=== PATIENT | male | born 1960 | race Caucasian/White ===

== ENCOUNTER 2018-06-17 11:09 | Day surgery (SDC) | payer BC ==
[2018-06-13 14:16] VITALS: BMI 23.6
[~2018-06-17 11:09] MED LIST: LACTATED RINGERS 1,000 ML IV SCH
[2018-06-17 11:21] VITALS: TEMP 98
[2018-06-17] MEDS ORDERED: LACTATED RINGERS 1,000 ML IV ONE (11:21)
[2018-06-17] MEDS ORDERED: LIDOCAINE 1% 20 ML VIAL (10MG/ML) FOR IV START INTRADERMA ONE (11:21)
[2018-06-17] MEDS ORDERED: PROPOFOL 10 MG/ML 20 ML VIAL IV ONE (11:48)
--- NOTE | 2018-06-17 12:17 | P.PCN ---
Date of Procedure: 06/17/18 Procedure(s) Performed: Procedure: Esophagogastroduodenoscopy and biopsy. Preoperative diagnosis: History of hematemesis. Postoperative diagnosis: 1. Small sliding hiatal hernia with no obvious esophagitis or complicated reflux disease. 2. Mild antral gastritis. 3. Multiple biopsies obtained from the duodenum, antrum and esophagus. Preparation and sedation: Was provided by anesthesia. Brief clinical history: The patient is a 57-year-old male who is scheduled for this evaluation because of 3 episodes of vomiting including vomiting of blood that occurred between 6 weeks and 2 months ago. He has not had any such episodes since. He denied abdominal pain or acid reflux. Has been having infrascapular and mid back pain and an ultrasound of the gallbladder was recently performed. The results are not available at the time of this dictation. This evaluation is to assess for peptic ulcer disease, complicated reflux or other pathology. Procedure: With the patient on his left lateral decubitus position and after informed consent and adequate sedation, I passed the Olympus-GIF H1 90 video upper endoscope through the cricopharyngeus down the esophagus. GE junction was around 38 cm from the incisors and there was a sliding hiatal hernia measuring between 1 and 2 cm but no obvious esophagitis or complicated reflux disease. The endoscope was then passed into the stomach which was insufflated with air and inspected in detail including the retroflex view in the cardia. There was some mottling and erythema in the antrum but no ulcers or erosions. Pyloric channel, duodenal bulb, post bulbar area and descending duodenum appeared within normal limits. Because of his symptoms. I obtained biopsies from the duodenum, antrum and esophagus then the endoscope was withdrawn. The patient tolerated the procedure well. Plan: The patient was reassured. Will await biopsy results. He will follow up with you as planned and further plans will be based on his course and biopsy and ultrasound results. I will be happy to see in the future if his symptoms persist.
[2018-06-17 12:18] VITALS: PULSE 79; RESP 16
[2018-06-17 12:36] VITALS: BP 117/72
== END 2018-06-17 13:20 | disposition home or self-care (01) ==
LOC: ORWHC2ENDO 11:09
DX: K29.50 Unspecified chronic gastritis without bleeding (principal); K92.0 Hematemesis; K44.9 Diaphragmatic hernia without obstruction or gangrene; I10 Essential (primary) hypertension; M19.90 Unspecified osteoarthritis, unspecified site; Z79.890 Hormone replacement therapy; Z79.899 Other long term (current) drug therapy
CPT/HCPCS: 43239; J2704; 88305

== ENCOUNTER → 2018-06-27 | Outpatient (CLI) | payer BC ==
--- NOTE | 2018-06-28 07:56 | NM ---
EXAMINATION TYPE: NM hepatobiliary w EF DATE OF EXAM: 06/27/2018 COMPARISON: NONE HISTORY: Right upper quadrant pain TECHNIQUE: After the intravenous administration of 4.67 mCi Tc 99m Mebrofenin hepatobiliary scintigra phy is performed. Immediate images post injection. FINDINGS: There is satisfactory initial accumulation of tracer by the liver. The gallbladder is visualized wit hin 8 minutes. The small bowel activity is noted within 34 minutes. At one hour 8 ounces of oral en sure plus is given to mimic CCK and gallbladder ejection fraction is calculated at 96%. IMPRESSION: Elevated gallbladder ejection fraction indicating hypercontractile state.
== END | disposition home or self-care (01) ==
LOC: RADNMMAIN 14:38
PROVIDERS: ATTEND Family Medicine
DX: R93.2 Abnormal findings on diagnostic imaging of liver and biliary tract (principal)
CPT/HCPCS: 78226; A9537

== ENCOUNTER 2020-01-11 20:14 | Observation (INO) | payer BC ==
[2020-01-11] MEDS ORDERED: SODIUM CHLORIDE 0.9% 1,000 ML IV STA (20:41)
--- NOTE | 2020-01-11 20:54 | ED ---
General Adult HPI - General Source: patient Mode of arrival: ambulatory Limitations: no limitations <Tricia Lowry - Last Filed: 01/11/20 23:29> <Dina Edwards - Last Filed: 01/18/20 23:35> - General Chief complaint: Dizziness Stated complaint: Dizziness,Nausea Time Seen by Provider: 01/11/20 20:31 - History of Present Illness Initial comments: 59-year-old male patient presents to the emergency department today for evaluation of elevated blood pressure, weakness, dizziness. Patient states last night he had 3 syncopal episodes. States he did have a couple of alcoholic beverages was sitting on the fire. States he started to not feel well, passed out. Patient did strike the side of his head with the fall. was present and states that he was unconscious for around 1 minute. States that he got up and went into the house and had 2 more syncopal events in a similar fashion. Today patient reports intermittent headache. Denies blurred or double vision. States he does feel lightheaded when he gets up or moves his head too fast. States that he is also just feeling generally weak and tired today. He denies any nausea or vomiting. Denies numbness, tingling, or weakness to the extremities. Patient states that he has had approximately 6 episodes of syncope in the past. States that he has had evaluation by cardiology and his primary care physician and were unable to find a cause for the episodes. Patient denies any current chest pain or shortness of breath. Denies any abdominal pain, difficulty with urination or diarrhea. He is reporting cramping to his calves today. Patient denies any recent rash, fever, chills, cough, constipation, back pain, numbness, tingling, dizziness, weakness, hematuria, dysuria, urinary urgency, urinary frequency, or any other complaints. (Tricia Lowry) - Related Data Home Medications Medication Instructions Recorded Confirmed Levothyroxine Sodium [Synthroid] 25 mcg PO DAILY 04/22/14 01/12/20 Losartan Potassium 100 mg PO HS 04/23/14 01/12/20 Multivitamin [Men's Multi-Vitamin] 1 each PO DAILY 06/13/18 01/12/20 Allergies Allergy/AdvReac Type Severity Reaction Status Date / Time No Known Allergies Allergy Verified 01/12/20 08:24 Review of Systems ROS Other: All systems not noted in ROS Statement are negative. <Tricia Lowry - Last Filed: 01/11/20 23:29> ROS Other: All systems not noted in ROS Statement are negative. <Dina Edwards Miranda - Last Filed: 01/18/20 23:35> ROS Statement: Those systems with pertinent positive or pertinent negative responses have been documented in the HPI. Past Medical History Past Medical History: Hyperlipidemia, Hypertension, Osteoarthritis (OA), Thyroid Disorder Additional Past Medical History / Comment(s): LEFT KNEE INJURY History of Any Multi-Drug Resistant Organisms: None Reported Past Surgical History: Orthopedic Surgery Additional Past Surgical History / Comment(s): RT FOOT SURGERY; R KNEE SURGERY Past Anesthesia/Blood Transfusion Reactions: Motion Sickness Past Psychological History: No Psychological Hx Reported Smoking Status: Never smoker Past Alcohol Use History: Occasional Past Drug Use History: Marijuana - Past Family History Mother Family Medical History: Deep Vein Thrombosis (DVT), Pulmonary Embolus Sister(s) Family Medical History: Cancer Brother(s) Family Medical History: Cancer Additional Family Medical History / Comment(s): 3 BROTHERS HAD CANCER <Tricia Lowry - Last Filed: 01/11/20 23:29> General Exam Limitations: no limitations General appearance: alert, in no apparent distress, other (This is a well- developed, well-nourished adult male patient in no acute distress. Vital signs upon presentation are temperature 98.3F, pulse 70, respirations 18, blood pressure 154/95, pulse ox 97% on room air.) Head exam: Present: atraumatic, normocephalic, normal inspection Eye exam: Present: normal appearance, PERRL, EOMI. Absent: scleral icterus, conjunctival injection, nystagmus, periorbital swelling ENT exam: Present: normal exam, normal oropharynx, mucous membranes moist Respiratory exam: Present: normal lung sounds bilaterally. Absent: respiratory distress, wheezes, rales, rhonchi, stridor Cardiovascular Exam: Present: regular rate, normal rhythm, normal heart sounds. Absent: systolic murmur, diastolic murmur, rubs, gallop, clicks GI/Abdominal exam: Present: soft, normal bowel sounds. Absent: distended, tenderness, guarding, rebound, rigid Neurological exam: Present: alert, oriented X3, CN II-XII intact Expanded Speech: Present: fluid speech Cranial nerves: EOM's Intact: Normal, Tongue Deviation: Normal, Nystagmus: Normal Motor strength exam: RUE: 5, LUE: 5, RLE: 5, LLE: 5 Eye Response: (4) open spontaneously Motor Response: (6) obeys commands Verbal Response: (5) oriented [place] Total: 15 Psychiatric exam: Present: normal affect, normal mood Skin exam: Present: warm, dry, intact, normal color. Absent: rash <Tricia Lowry - Last Filed: 01/11/20 23:29> Course Vital Signs 01/11/20 01/11/20 20:25 22:44 Temperature 98.3 F Pulse Rate 70 67 Respiratory 18 18 Rate Blood Pressure 154/95 140/78 O2 Sat by Pulse 97 96 Oximetry EKG Findings - EKG Comments: EKG Findings:: EKG obtained at 2103 shows sinus bradycardia with an incomplete right bundle branch block. Ventricular rate is 58, NH interval 142, QR sabianism 92, QT 408, QTC 400. <Tricia Lowry - Last Filed: 01/11/20 23:29> Medical Decision Making - Lab Data Result diagrams: 01/11/20 20:46 01/11/20 20:46 - Radiology Data Radiology results: report reviewed, image reviewed <Tricia Lowry - Last Filed: 01/11/20 23:29> - Lab Data Result diagrams: 01/11/20 20:46 01/11/20 20:46 <Dina Edwards - Last Filed: 01/18/20 23:35> - Medical Decision Making 59-year-old male patient presents to the emergency department today for evaluation after having 3 episodes of syncope yesterday and continued to have elevated blood pressures and feeling weak today. Physical examination is unremarkable. 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 EKG shows sinus bradycardia with an incomplete right bundle branch block. Patient has no previous ekgs for comparison, states his heart rate usually is not this low. Labs reviewed and are unremarkable. CT of the brain was performed and is negative. Chest x-ray is unremarkable. Given patient's symptoms and new bradycardia we'll admit to the hospital for further evaluation by cardiology. Patient is agreeable this plan. (Tricia Lowry) I was available for consultation in the emergency department. The history and physical exam were done by the midlevel provider. I was consulted for this patients care. I reviewed the case with the midlevel provider and based on their presentation of the patient, I agree with the assessment, medical decision making and plan of care as documented. Chart was dictated using [employer] dictation software. Attempts were made to correct any dictation errors however some typographical errors may persist. Patient was seen during a national state of emergency due to the Covid-19 pandemic. (Dina Edwards) - Lab Data Lab Results 01/11/20 01/11/20 01/11/20 Range/Units 20:46 20:46 20:46 WBC 6.7 (3.8-10.6) k/uL RBC 5.09 (4.30-5.90) m/uL Hgb 16.1 (13.0-17.5) gm/dL Hct 46.9 (39.0-53.0) % MCV 92.2 (80.0-100.0) fL MCH 31.6 (25.0-35.0) pg MCHC 34.2 (31.0-37.0) g/dL RDW 12.9 (11.5-15.5) % Plt Count 198 (150-450) k/uL Neutrophils % 56 % Lymphocytes % 33 % Monocytes % 5 % Eosinophils % 3 % Basophils % 1 % Neutrophils # 3.8 (1.3-7.7) k/uL Lymphocytes # 2.2 (1.0-4.8) k/uL Monocytes # 0.3 (0-1.0) k/uL Eosinophils # 0.2 (0-0.7) k/uL Basophils # 0.1 (0-0.2) k/uL PT 10.3 (9.0-12.0) sec INR 1.0 (<1.2) APTT 24.9 (22.0-30.0) sec Sodium 139 (137-145) mmol/L Potassium 3.9 (3.5-5.1) mmol/L Chloride 105 (98-107) mmol/L Carbon Dioxide 26 (22-30) mmol/L Anion Gap 8 mmol/L BUN 31 H (9-20) mg/dL Creatinine 1.21 (0.66-1.25) mg/dL Est GFR (CKD-EPI)AfAm 75 (>60 ml/min/1.73 sqM) Est GFR (CKD-EPI)NonAf 65 (>60 ml/min/1.73 sqM) Glucose 142 H (74-99) mg/dL Calcium 9.5 (8.4-10.2) mg/dL Magnesium 2.1 (1.6-2.3) mg/dL Total Bilirubin 0.4 (0.2-1.3) mg/dL AST 26 (17-59) U/L ALT 21 (4-49) U/L Alkaline Phosphatase 82 (38-126) U/L Troponin I (0.000-0.034) ng/mL Total Protein 7.1 (6.3-8.2) g/dL Albumin 4.5 (3.5-5.0) g/dL Urine Color Urine Appearance (Clear) Urine pH (5.0-8.0) Ur Specific Mena (1.001-1.035) Urine Protein (Negative) Urine Glucose (UA) (Negative) Urine Ketones (Negative) Urine Blood (Negative) Urine Nitrite (Negative) Urine Bilirubin (Negative) Urine Urobilinogen (<2.0) mg/dL Ur Leukocyte Esterase (Negative) Coronavirus (PCR) (Not Detected) 01/11/20 01/11/20 01/11/20 Range/Units 20:46 22:06 23:19 WBC (3.8-10.6) k/uL RBC (4.30-5.90) m/uL Hgb (13.0-17.5) gm/dL Hct (39.0-53.0) % MCV (80.0-100.0) fL MCH (25.0-35.0) pg MCHC (31.0-37.0) g/dL RDW (11.5-15.5) % Plt Count (150-450) k/uL Neutrophils % % Lymphocytes % % Monocytes % % Eosinophils % % Basophils % % Neutrophils # (1.3-7.7) k/uL Lymphocytes # (1.0-4.8) k/uL Monocytes # (0-1.0) k/uL Eosinophils # (0-0.7) k/uL Basophils # (0-0.2) k/uL PT (9.0-12.0) sec INR (<1.2) APTT (22.0-30.0) sec Sodium (137-145) mmol/L Potassium (3.5-5.1) mmol/L Chloride (98-107) mmol/L Carbon Dioxide (22-30) mmol/L Anion Gap mmol/L BUN (9-20) mg/dL Creatinine (0.66-1.25) mg/dL Est GFR (CKD-EPI)AfAm (>60 ml/min/1.73 sqM) Est GFR (CKD-EPI)NonAf (>60 ml/min/1.73 sqM) Glucose (74-99) mg/dL Calcium (8.4-10.2) mg/dL Magnesium (1.6-2.3) mg/dL Total Bilirubin (0.2-1.3) mg/dL AST (17-59) U/L ALT (4-49) U/L Alkaline Phosphatase (38-126) U/L Troponin I <0.012 (0.000-0.034) ng/mL Total Protein (6.3-8.2) g/dL Albumin (3.5-5.0) g/dL Urine Color Yellow Urine Appearance Clear (Clear) Urine pH 5.5 (5.0-8.0) Ur Specific [place] 1.030 (1.001-1.035) Urine Protein Negative (Negative) Urine Glucose (UA) Negative (Negative) Urine Ketones Negative (Negative) Urine Blood Negative (Negative) Urine Nitrite Negative (Negative) Urine Bilirubin Negative (Negative) Urine Urobilinogen <2.0 (<2.0) mg/dL Ur Leukocyte Esterase Negative (Negative) Coronavirus (PCR) Not Detected (Not Detected) - Radiology Data CT brain without contrast was obtained. Report is reviewed in its entirety. Impression by Dr. Roldan shows negative unenhanced head CT scan. Two-view x-ray of the chest is obtained. Report was reviewed in its entirety. Impression by Dr. Roldan shows normal chest. (Tricia Lowry) Disposition Decision to Admit Reason: Admit from EC Decision Date: 01/11/20 Decision Time: 23:01 <Tricia Lowry - Last Filed: 01/11/20 23:29> <Dina Edwards - Last Filed: 01/18/20 23:35> Clinical Impression: Syncope, Bradycardia, Weakness Disposition: ADMITTED IP TO THIS HOSP Condition: Serious
[2020-01-11 20:55] LABS: Basophils # (A) 0.1 k/uL (0-0.2); Basophils % (A) 1 %; Eosinophils # (A) 0.2 k/uL (0-0.7); Eosinophils % (A) 3 %; HCT 46.9 % (39.0-53.0); HGB 16.1 gm/dL (13.0-17.5); Lymphocytes # (A) 2.2 k/uL (1.0-4.8); Lymphocytes % (A) 33 %; MCH 31.6 pg (25.0-35.0); MCHC 34.2 g/dL (31.0-37.0); MCV 92.2 fL (80.0-100.0); Mean Platelet Volume 7.3; Monocytes # (A) 0.3 k/uL (0-1.0); Monocytes % (A) 5 %; Neutrophils # (A) 3.8 k/uL (1.3-7.7); Neutrophils % (A) 56 %; Platelet Count 198 k/uL (150-450); RBC 5.09 m/uL (4.30-5.90); RDW 12.9 % (11.5-15.5); WBC 6.7 k/uL (3.8-10.6)
--- NOTE | 2020-01-11 21:02 | CT ---
EXAMINATION TYPE: CT brain wo con DATE OF EXAM: 01/11/2020 COMPARISON: None HISTORY: Syncope and head injury. CT DLP: 1098.4 mGycm Automated exposure control for dose reduction was used. Ventricles have normal size. There is no mass effect or midline shift. There is no sign of intracrani al hemorrhage. The calvarium is intact. There is no evidence of cerebral edema. IMPRESSION: Negative unenhanced head CT scan.
--- NOTE | 2020-01-11 21:03 | XR ---
EXAMINATION TYPE: XR chest 2V DATE OF EXAM: 01/11/2020 COMPARISON: NONE HISTORY: Syncope. Nausea. TECHNIQUE: FINDINGS: Heart and mediastinum are normal. Lungs are clear. Diaphragm is normal. Bony thorax appears normal. IMPRESSION: Normal chest.
[2020-01-11 21:04] LABS: Albumin 4.5 g/dL (3.5-5.0); Calcium 9.5 mg/dL (8.4-10.2); Magnesium 2.1 mg/dL (1.6-2.3); Potassium 3.9 mmol/L (3.5-5.1); Total Bilirubin 0.4 mg/dL (0.2-1.3); Total Protein 7.1 g/dL (6.3-8.2)
[2020-01-11 21:09] LABS: Partial Thromboplastin Time 24.9 sec (22.0-30.0); Prothrombin Time 10.3 sec (9.0-12.0)
[2020-01-11 22:16] LABS: Appearance,Urine Clear (Clear); Bilirubin,Urine Negative (Negative); Blood,Urine Negative (Negative); Color,Urine Yellow; Glucose,Urine (UA) Negative (Negative); Ketones,Urine Negative (Negative); Leukocyte Esterase,Urine Negative (Negative); Nitrite,Urine Negative (Negative); PH, Urine 5.5 (5.0-8.0); Protein,Urine Negative (Negative); Urobilinogen,Urine <2.0 mg/dL (<2.0)
[2020-01-11] MEDS ORDERED: ONDANSETRON 4 MG/2 ML VIAL IVP PRN (22:56)
[2020-01-11] MEDS ORDERED: NALOXONE 0.4 MG/ML 1 ML VIAL IV PRN (22:56)
[2020-01-11] MEDS ORDERED: SODIUM CHLORIDE 0.9% 1,000 ML IV SCH (23:00)
[2020-01-12 08:16] VITALS: RESP 12
[2020-01-12] MEDS ORDERED: LOSARTAN 50 MG TAB PO SCH (09:00)
[2020-01-12] MEDS ORDERED: MULTIVITAMINS, THERA 1 EACH TAB PO SCH (09:00)
[2020-01-12] MEDS ORDERED: LEVOTHYROXINE 25 MCG TAB PO SCH (09:00)
--- NOTE | 2020-01-12 11:02 | ECHOF ---
Referral Reason:syncope MEASUREMENTS -------- HEIGHT: 175.3 cm WEIGHT: 76.2 kg BP: 142/83 RVIDd: 3.4 cm (< 3.3) IVSd: 1.3 cm (0.6 - 1.1) LVIDd: 4.4 cm (3.9 - 5.3) LVPWd: 1.1 cm (0.6 - 1.1) IVSs: 1.6 cm LVIDs: 3.5 cm LVPWs: 1.4 cm LA Diam: 3.9 cm (2.7 - 3.8) LAESV Index (A-L): 25.70 ml/m Ao Diam: 3.2 cm (2.0 - 3.7) AV Cusp: 1.9 cm (1.5 - 2.6) MV EXCURSION: 16.920 mm (> 18.000) MV EF SLOPE: 86 mm/s (70 - 150) EPSS: 0.7 cm MV E Rudolph: 0.63 m/s MV DecT: 193 ms MV A Rudolph: 0.61 m/s MV E/A Ratio: 1.04 AR PHT: 1034 ms RAP: 5.00 mmHg RVSP: 30.58 mmHg FINDINGS -------- Sinus rhythm. This was a technically good study. LV size, wall thickness and systolic function are normal, with an EF greater than 55%. The left amrit tricular size is normal. The right ventricle is mildly enlarged. Normal LA size by volume 22+/-6 ml/m2. The right atrial size is normal. Aneurysmal Interatrial septum. There is mild aortic valve sclerosis. There is [id number] aortic regurgitation. The mitral valve is normal. Mild mitral regurgitation is present. Mild tricuspid regurgitation present. Right ventricular systolic pressure is normal at < 35 mmHg. Trace/mild (physiologic) pulmonic regurgitation. The aortic root size is normal. Normal inferior vena cava with normal inspiratory collapse consistent with estimated right atrial pre ssure of 5 mmHg. There is no pericardial effusion. CONCLUSIONS -------- 1. LV size, wall thickness and systolic function are normal, with an EF greater than 55%. 2. The right ventricle is mildly enlarged. 3. Normal LA size by volume 22+/-6 ml/m2. 4. Aneurysmal Interatrial septum. 5. There is mild aortic valve sclerosis. 6. There is exhy-xy-esqtguja aortic regurgitation. 7. Mild mitral regurgitation is present. 8. Mild tricuspid regurgitation present. 9. Trace/mild (physiologic) pulmonic regurgitation. 10. There is no pericardial effusion. MOLDER PIPE COVERING: Marlene Chung RDCS
[2020-01-12 11:10] VITALS: BP 145/69; PULSE 67; TEMP 97.8
[2020-01-12] MEDS ORDERED: SODIUM CHLORIDE 0.9% 500 ML 500 ML IV ONE (13:12)
--- NOTE | 2020-01-12 13:58 | CONS ---
CONSULTATION Mr. Guerra is a 59-year-old male with known history of hypertension, borderline hyperlipidemia, according to him, who presented with a syncopal episode. He had a similar episode in the past, but not recently. According to him, he had full cardiac workup that was unremarkable, although details of that are not available to me. On Sunday night after having 2 alcoholic drinks, sitting up next to the fire, he felt dizzy, did not feel well. He stood up, took about 8-10 steps when he had a syncopal episode lasting for 1 minute. He came to, and then tried to get inside the home to get back to his bed when he had another syncopal episode. He had no palpitation. No change in his breathing. No significant diaphoresis. No palpitations. Patient is active physically, has no exertional chest discomfort or dyspnea on exertion. He has no arrhythmia. He has no PND, orthopnea, or peripheral edema. He has no prior documented cardiac history. His coronary risk factors are remarkable for hypertension and hyperlipidemia. He is nondiabetic, nonsmoker. MEDICATIONS: Include multivitamin, losartan 100 mg daily and levothyroxine 0.025 mg daily. REVIEW OF SYSTEMS: RESPIRATORY SYSTEM: No recent wheezing or cough. No history of obstructive lung disease. GI SYSTEM: No recent GI bleeding. No peptic ulcer disease. SYSTEM: No dysuria or hematuria. NERVOUS SYSTEM: No stroke or seizure. PHYSICAL EXAMINATION: A 59-year-old male, alert, oriented, in no apparent distress. Blood pressure running in the 144/80 with a heart rate in the 50s to 60. HEAD: Normocephalic. EYES: Sclerae nonicteric. NECK: Good upstroke, no bruit, no venous distention. LUNGS: Clear to auscultation. HEART: Regular rate and rhythm. S1, S2. No S3. No S4. No murmur or rub. ABDOMEN: Soft, nontender, positive bowel sounds, no organomegaly. EXTREMITIES: No edema, intact pulses. LAB DATA: Revealed a troponin less than 0.012 for 3 samples. BUN and creatinine of 31 and 1.1, potassium 3.9, hemoglobin of 16.1, white blood cell of 6.7. EKG revealed a sinus mechanism, RSR prime with no acute ST-segment changes. Chest x-ray is unremarkable. Brain CT showed no acute changes. IMPRESSION: 1. Syncopal episode, most likely orthostatic hypotension. No evidence to suggest malignant arrhythmia. The event is probably related to dehydration and the alcohol intake. 2. History of hypertension. 3. Hyperlipidemia, not on medical therapy at this time. RECOMMENDATION: I have discussed with the patient the importance change in position gradually, avoiding dehydration. I will obtain echocardiogram with Doppler, increase his activity. If he remains stable, I would expect he should be able to be discharged home today. He will be followed as an outpatient. Thank you for this consult. Will follow with you. MARU / GELA: [id number] /
--- NOTE | 2020-01-12 14:42 | P.HPIM ---
History of Present Illness 59-year-old male came in with the an episode of syncope. Patient had similar episode more than 6 months ago. At that time cardiac workup was done very within normal limits patient has been working in the sun had couple drinks felt dizzy stood up to Around 8-10 steps had a syncopal episode which lasted for 1 minute without any seizure-like activity loss of bowel or bladder incontinence. Patient had an echo cardiac exam which is within normal notes patient was evaluated cardiology troponins are negative EKG changes significant abnormality. Patient is found to have mildly elevated creatinine creatinine of 30 and 1.2. Patient is probably dehydrated was receiving gentle hydration I'll give him more fluids probably will be discharged today. Patient continues to have similar symptoms down the line patient may need a event monitor at that time. For now patient will be hydrated and follow up with cardiology and PCP as an outpatient. Review of Systems REVIEW OF SYSTEMS: CONSTITUTIONAL: No fever, no malaise, no fatigue. HEENT: No recent visual problems or hearing problems. Denied any sore throat. CARDIOVASCULAR: No chest pain, orthopnea, PND, no palpitations. PULMONARY: No shortness of breath, no cough, no hemoptysis. GASTROINTESTINAL: No diarrhea, no nausea, no vomiting, no abdominal pain. NEUROLOGICAL: No headaches, no weakness, no numbness. HEMATOLOGICAL: Denies any bleeding or petechiae. GENITOURINARY: Denies any burning micturition, frequency, or urgency. MUSCULOSKELETAL/RHEUMATOLOGICAL: Denies any joint pain, swelling, or any muscle pain. ENDOCRINE: Denies any polyuria or polydipsia. The rest of the 14-point review of systems is negative. Past Medical History Past Medical History: Hyperlipidemia, Hypertension, Osteoarthritis (OA), Thyroid Disorder Additional Past Medical History / Comment(s): LEFT KNEE INJURY History of Any Multi-Drug Resistant Organisms: None Reported Past Surgical History: Orthopedic Surgery Additional Past Surgical History / Comment(s): RT FOOT SURGERY; VASECTOMY Past Anesthesia/Blood Transfusion Reactions: Motion Sickness Past Psychological History: No Psychological Hx Reported Smoking Status: Never smoker Past Alcohol Use History: Occasional Past Drug Use History: Marijuana - Past Family History Mother Family Medical History: Deep Vein Thrombosis (DVT), Pulmonary Embolus Sister(s) Family Medical History: Cancer Brother(s) Family Medical History: Cancer Additional Family Medical History / Comment(s): 3 BROTHERS HAD CANCER Medications and Allergies Home Medications Medication Instructions Recorded Confirmed Type Levothyroxine Sodium [Synthroid] 25 mcg PO DAILY 04/22/14 01/12/20 History Losartan Potassium 100 mg PO HS 04/23/14 01/12/20 History Multivitamin [Men's Multi-Vitamin] 1 each PO DAILY 06/13/18 01/12/20 History Allergies Allergy/AdvReac Type Severity Reaction Status Date / Time No Known Allergies Allergy Verified 01/12/20 08:24 Physical Exam Vitals: Vital Signs Temp Pulse Pulse Resp BP BP Pulse Ox 01/12/20 11:08 97.8 F 67 12 145/69 97 01/12/20 08:00 97.9 F 56 L 12 142/83 99 01/12/20 04:00 98 F 50 L 17 144/87 95 01/12/20 03:20 17 01/12/20 00:00 97.3 F L 47 L 18 146/85 95 01/11/20 22:44 67 18 140/78 96 01/11/20 20:25 98.3 F 70 18 154/95 97 Intake and Output 01/11/20 01/12/20 01/12/20 22:59 06:59 14:59 Intake Total 100 240 Balance 100 240 Intake: Intake, IV Titration 100 Amount Sodium Chloride 0.9% 1, 100 000 ml @ 50 mls/hr IV . Q20H [facility] Rx#:[id number] Oral 0 240 Other: Voiding Method Toilet Toilet # Voids 1 2 Weight 76.204 kg 76.204 kg PHYSICAL EXAMINATION: GENERAL: The patient is alert and oriented x3, not in any acute distress. Well developed, well nourished. HEENT: Pupils are round and equally reacting to light. EOMI. No scleral icterus. No conjunctival pallor. Normocephalic, atraumatic. No pharyngeal erythema. No thyromegaly. CARDIOVASCULAR: S1 and S2 present. No murmurs, rubs, or gallops. PULMONARY: Chest is clear to auscultation, no wheezing or crackles. ABDOMEN: Soft, nontender, nondistended, normoactive bowel sounds. No palpable organomegaly. MUSCULOSKELETAL: No joint swelling or deformity. EXTREMITIES: No cyanosis, clubbing, or pedal edema. NEUROLOGICAL: Gross neurological examination did not reveal any focal deficits. SKIN: No rashes. Results CBC & Chem 7: 01/11/20 20:46 01/11/20 20:46 Labs: Abnormal Lab Results - Last 24 Hours (Table) 01/11/20 Range/Units 20:46 BUN 31 H (9-20) mg/dL Glucose 142 H (74-99) mg/dL Thrombosis Risk Factor Assmnt - Choose All That Apply Any of the Below Risk Factors Present?: Yes Each Factor Represents 1 point: Age 41-60 years Other Risk Factors: No Thrombosis Risk Factor Assessment Total Risk Factor Score: 1 Thrombosis Risk Factor Assessment Level: Low Risk Assessment and Plan Plan: -Syncope.: Secondary to dehydration most probably. While blood and the cardiac structural abnormalities were ruled out with echocardiogram. Patient's orthostatic vitals are within normal limits. No evidence of significant arrhythmia that can contribute to his symptoms on the telemetry. -Hypertension -Hyperlipidemia -Mild acute renal failure secondary to intravascular and patient will be given a half liter bolus of fluids and will be discharged to follow with PCP and cardiology as an outpatient.
--- NOTE | 2020-01-12 14:43 | P.DS ---
Providers Date of admission: 01/11/20 23:29 Attending physician: Abeba Granda Consults: 01/11/20 22:59 Consult Physician Routine Consulting Provider: [facility] Consult Reason/Comments: Bradycardia; syncope; weakness Do you want consulting provider notified?: Yes Primary care physician: Roni Henry Hospital Course: Please refer to my HPI for further details Patient Condition at Discharge: Serious Plan - Discharge Summary Discharge Rx Participant: No New Discharge Prescriptions: No Action Levothyroxine Sodium [Synthroid] 25 mcg PO DAILY Losartan Potassium 100 mg PO HS Multivitamin [Men's Multi-Vitamin] 1 each PO DAILY Discharge Medication List Levothyroxine Sodium [Synthroid] 25 mcg PO DAILY 04/22/14 [History] Losartan Potassium 100 mg PO HS 04/23/14 [History] Multivitamin [Men's Multi-Vitamin] 1 each PO DAILY 06/13/18 [History] Follow up Appointment(s)/Referral(s): Matthew Zhao MD [STAFF PHYSICIAN] - 1 Week (office will call you with date and time of appointment) Roni Henry DO [Primary Care Provider] - 01/19/20 2:30 pm Patient Instructions/Handouts: Syncope (DC) Discharge Disposition: HOME SELF-CARE
== END 2020-01-12 14:32 | disposition home or self-care (01) ==
LOC: EC 20:14 → 1SOBS 23:29
PROVIDERS: ADMIT Hospitalist; ATTEND Hospitalist
DX: R55 Syncope and collapse (principal); E78.5 Hyperlipidemia, unspecified; E86.0 Dehydration; I10 Essential (primary) hypertension; I45.10 Unspecified right bundle-branch block; N17.9 Acute kidney failure, unspecified; Z79.890 Hormone replacement therapy; Z11.59 Encounter for screening for other viral diseases; Z82.49 Family history of ischemic heart disease and other diseases of the circulatory system; Z80.9 Family history of malignant neoplasm, unspecified
CPT/HCPCS: 96361 ×2; 96360; 99285; 36415; 93005 ×2; 93306; 80053; 83735; 84484 ×2; 85025; 85610; 85730; 81003; 71046; 70450; G0378 ×2; U0003

== ENCOUNTER → 2020-03-25 | Outpatient (CLI) | payer BC ==
[2020-03-25 12:28] LABS: Albumin 4.3 g/dL (3.5-5.0); Calcium 9.4 mg/dL (8.4-10.2); Potassium 4.6 mmol/L (3.5-5.1); Total Bilirubin 0.5 mg/dL (0.2-1.3)
[2020-03-25 12:35] LABS: HCT 48.3 % (39.0-53.0); HGB 15.5 gm/dL (13.0-17.5); MCH 29.4 pg (25.0-35.0); MCHC 32.1 g/dL (31.0-37.0); MCV 91.4 fL (80.0-100.0); Mean Platelet Volume 7.1; Platelet Count 200 k/uL (150-450); RBC 5.29 m/uL (4.30-5.90); RDW 12.8 % (11.5-15.5); WBC 5.9 k/uL (3.8-10.6)
[2020-03-25 12:40] LABS: Partial Thromboplastin Time 25.7 sec (22.0-30.0); Prothrombin Time 10.5 sec (9.0-12.0)
[2020-03-25 13:04] LABS: Appearance,Urine Clear (Clear); Bilirubin,Urine Negative (Negative); Blood,Urine Negative (Negative); Color,Urine Yellow; Glucose,Urine (UA) Negative (Negative); Ketones,Urine Negative (Negative); Leukocyte Esterase,Urine Negative (Negative); Nitrite,Urine Negative (Negative); Protein,Urine Negative (Negative); Specific Gravity,Urine 1.021 (1.001-1.035); Urobilinogen,Urine <2.0 mg/dL (<2.0)
== END | disposition home or self-care (01) ==
LOC: LABPAT 11:16
PROVIDERS: ATTEND Orthopaedic Surgery
DX: Z01.818 Encounter for other preprocedural examination (principal); Z01.812 Encounter for preprocedural laboratory examination
CPT/HCPCS: 36415; 80053; 81003; 85027; 85610; 85730; 87070

== ENCOUNTER 2020-04-06 10:28 | Day surgery (SDC) | payer BC ==
[2020-04-05 08:37] VITALS: BMI 25.1
[~2020-04-06 10:28] MED LIST changes: +ACETAMINOPHEN TAB 500 MG TAB PO ONE; +DEXAMETHASONE SOD PHOSPHATE 10 MG/ML 1 ML VIAL IV ONE; +GABAPENTIN 300 MG CAP PO ONE; +HYDROcodone/APAP 5-325MG 1 EACH TAB PO PRN; +HYDROmorphone 0.5 MG/0.5 ML SYRINGE IVP PRN; +HYDROmorphone 1 MG/ML 1 ML SYRINGE IVP PRN; -LACTATED RINGERS 1,000 ML IV SCH; +LIDOCAINE 1% (10MG/ML) FOR IV START INTRADERMA PRN; +MAGNESIUM HYDROXIDE 2,400 MG/10 ML CUP PO PRN; +MELOXICAM 7.5 MG TAB PO ONE; +MIDAZOLAM 2 MG/2 ML VIAL IV PRN; +NALOXONE 0.4 MG/ML 1 ML VIAL IV PRN; +ONDANSETRON 4 MG/2 ML VIAL IVP ONE; +ONDANSETRON 4 MG/2 ML VIAL IVP PRN; +TRANEXAMIC ACID 1,000 MG in SODIUM CHLORIDE 0.9% 100 ML IVPB ONE; +diazePAM 5 MG TAB PO PRN; +hydrOXYzine pamoate 25 MG CAP PO PRN
[2020-04-06] MEDS: LACTATED RINGERS 1,000 ML IV SCH (11:07)
[2020-04-06] MEDS ORDERED: SODIUM CHLORIDE 0.9% 100 ML BAG ONE (12:24)
[2020-04-06] MEDS ORDERED: SODIUM CHLORIDE 0.9% IRRIG 1,000 ML BTL IRRIGATION ONE (12:24)
[2020-04-06] MEDS ORDERED: fentaNYL (PF) 50 MCG/ML 2 ML AMP ONE (12:24)
[2020-04-06] MEDS ORDERED: TRANEXAMIC ACID 1,000 MG/10 ML VIAL ONE (12:24)
[2020-04-06] MEDS ORDERED: HEPARIN SODIUM,PORCINE 10,000 UNIT/ML 1 ML VIAL ONE (12:24)
[2020-04-06] MEDS ORDERED: PROPOFOL 10 MG/ML 20 ML VIAL IV ONE (12:24)
[2020-04-06] MEDS ORDERED: MIDAZOLAM 2 MG/2 ML VIAL ONE (12:24)
[2020-04-06] MEDS: ROPIVACAINE 246.25 MG, EPINEPHrine 0.5 MG, KETOROLAC 30 MG, cloNIDine HCL/PF 80 MCG, WA... MISCELLANE ONE ×10 (12:28→13:30)
[2020-04-06] MEDS ORDERED: ceFAZolin 3,000 MG in SODIUM CHLORIDE 0.9% IRRIGATIO 3,000 ML IRRIGATION ONE (12:29)
[2020-04-06] MEDS ORDERED: LACTATED RINGERS 1,000 ML IV ONE (13:28)
--- NOTE | 2020-04-06 14:00 | P.OP ---
Date of Procedure: 04/06/20 Preoperative Diagnosis: Severe osteoarthritis right hip Postoperative Diagnosis: Severe osteoarthritis right hip Procedure(s) Performed: Right total hip arthroplasty with a direct anterior approach Implants: Hampton and nephew Polarstem size 2 standard Hampton [employer] Nephew R3, 3 hole acetabular shell, 52 mm [employer] Nephew reflection 6.5 mm cancellus screw, 20 mm 2 Hampton [employer] Nephew R3, XLPE 20 acetabular liner Hampton [employer] Nephew Oxinium femoral head 36 m, +-3 All components were press-fit. The articulation is Oxinium on polyethylene. Anesthesia: spinal Surgeon: Karthikeyan Ruggiero Market Relationship Manager #1: Deborah Kaufman Estimated Blood Loss (ml): 300 (125 mL returned with Cell Saver) Pathology: other (Femoral head) Condition: stable Disposition: PACU Indications for Procedure: After failure of conservative treatment we discussed the surgical and nonsurgical treatment options at length. Patient wishes to proceed with a total hip arthroplasty with a direct anterior approach. Complications specific to this procedure were discussed at length, including but not limited to infection, leg length discrepancy, dislocation, and nerve injury. Covid-19 was also discussed at length with the patient, and they are aware of the current policies and procedures. The patient was given the option of delaying surgery, but they elect to proceed knowing these risks. Patient is aware of all these complications and informed consent was obtained Operative Findings: The operative findings are consistent with severe osteoarthritis of the right hip Description of Procedure: Patient was seen and evaluated in the preoperative area, consent was reviewed, and the surgical site was marked with a skin marker. Patient was then brought to the operating room and given prophylactic antibiotics intravenously. 1 g of Tranexamic acid was also given. A spinal anesthetic was administered by the anesthesia department. The patient was then placed on the Pendleton table with the bony prominences well-padded. The hip area was then prepped and draped in usual sterile fashion. A universal timeout was then performed, which confirmed the patient's name, surgical site, ALLERGIES, and procedure being performed. Next the incision site was located at 1 cm distal and 1 cm lateral to the anterior superior iliac spine. The skin and subcutaneous tissues were sharply incised. Incision was carefully dissected down to the fascia overlying the tensor fascia jorge muscle. This fascia was then incised in line with the incision. Next, using blunt finger dissection, the tensor fascia jorge muscle was dissected off its investing fascia. The muscle was then carefully retracted laterally with a cobra retractor over the lateral neck of the femur. Next, the circumflex vessels were identified and cauterized using the AquaMantis device. The anterior hip capsule was then exposed. The capsule was then opened and an inverted T fashion. Cobra retractors were then placed intracapsularly. The proximal femur was then visualized. The femoral neck was then osteotomized appropriate level above the lesser trochanter. Small amount of traction was placed with the Pendleton table. A small wedge of bone was then removed from the remaining femoral head. Next, using a corkscrew femoral head was easily removed from the acetabulum. On gross visual inspection, the femoral head had complete loss of articular cartilage in multiple periarticular osteophytes. Attention was then turned to the acetabulum. the acetabulum was exposed and any remaining labrum was excised. Sequential reaming of the acetabulum was performed using fluoroscopic guidance. When the appropriate size was reached, a trial was then placed. The position and fit of the trial was checked with fluoroscopy. The trial was then removed. Then, using fluoroscopic guidance, the final implant was impacted at 20 of anteversion and 40 of abduction, and fully seated in the acetabulum. 2 screws were then placed in the acetabulum. Again fluoroscopy was used to check position of the screws. Next, the liner was then impacted, with a 20 elevated liner located in the anterior superior quadrant. Component locking was confirmed. Attention was then directed to the femur. With the aid of the Pendleton table, the femur was externally rotated to approximately 130, extended, and abducted under the opposite leg. A side hook was then placed under the proximal femur, and the side hook elevator was used to elevate the proximal femur. Retractors were then placed. A capsular release was performed, as well as a release of the conjoined tendon, which afforded excellent visualization of the proximal femur. Next, a box osteotome was used to lateralize the proximal femur. A stablehand was then used to locate the femoral canal. Sequential broaching was then performed with appropriate size which afforded excellent fixation in the proximal femur. A trial was then placed with appropriate head and neck, and the hip was gently red uced with the aid of the Pendleton table. Fluoroscopy was then used to check position of the components, as well as to ensure equal leg lengths. The hip was then gently dislocated and the trials were then removed. Final implants were then impacted and the hip was again reduced. Final fluoroscopic x-rays confirmed that the components were in anatomic position, as well as equal leg lengths. The hip was also taken through range of motion, and found to be stable. The hip was then copiously irrigated with antibiotic solution with pulsatile lavage. The hip was then irrigated with Irrisept solution. The soft tissues were then injected with a ropivacaine solution, which consisted of 246.25 mg of ropivacaine, 0.5 mg of epinephrine, 30 mg of Toradol, 80 g of clonidine, and 48.45 mL of sterile water, for a total of 100 mL of fluid injected. A second dose of 1 g of Tranexamic acid was also given. the fascia was then closed with 2-0 strata fix suture. The subcutaneous tissue was closed with 3-0 Vicryl. The subcuticular tissue was closed with 3-0 strata fix suture. The skin was then closed with Dermabond glue and a sterile silver dressing. The patient was then transferred to the recovery room in stable condition. The nursing home assistant CLAUDETTE Kovacs was required due to the complexity of surgery, and the need for skilled surgical technology instructor for positioning, draping, exposure, retraction, and closure of the wound.
--- NOTE | 2020-04-06 14:00 | XR ---
Fluoroscopy INDICATION: Pain FINDINGS: Fluoroscopy time: 43 seconds. Images obtained: 2. IMPRESSIONS: 1. Documentation of fluoroscopy.
--- NOTE | 2020-04-06 14:01 | FL ---
Fluoroscopy INDICATION: Pain FINDINGS: Fluoroscopy time: 43 seconds. IMPRESSIONS: 1. Documentation of fluoroscopy.
--- NOTE | 2020-04-06 14:28 | XR ---
EXAMINATION TYPE: XR Hip Limited RT DATE OF EXAM: 04/06/2020 COMPARISON: None HISTORY: Status post hip surgery TECHNIQUE: AP right hip FINDINGS: Femoral and acetabular components of in place. No acute fractures are evident. Soft tissue postsurgical changes are noted. IMPRESSION: 1. No acute fractures post right hip replacement.
[2020-04-06] MEDS: SODIUM CHLORIDE 0.9% 1,000 ML IV SCH (15:41)
[2020-04-06] MEDS: HYDROcodone/APAP 5-325MG 1 EACH TAB PO PRN (20:11)
[2020-04-06] MEDS: ASPIRIN 325 MG TAB PO SCH (20:12)
[2020-04-06] MEDS ORDERED: SENNOSIDES-DOCUSATE SODIUM 1 EACH TAB PO SCH (21:00)
[2020-04-07] MEDS: SODIUM CHLORIDE 0.9% 1,000 ML IV SCH (02:04)
[2020-04-07 03:48] VITALS: PULSE 56
[2020-04-07] MEDS: LACTATED RINGERS 1,000 ML IV SCH (05:39)
[2020-04-07] MEDS: HYDROcodone/APAP 5-325MG 1 EACH TAB PO PRN (06:02)
[2020-04-07] MEDS ORDERED: LEVOTHYROXINE 25 MCG TAB PO SCH (06:30)
[2020-04-07 06:57] LABS: Basophils % (A) 0 %; Eosinophils % (A) 0 %; HCT 39.8 % (39.0-53.0); HGB 12.7 gm/dL (13.0-17.5); Lymphocytes # (A) 1.7 k/uL (1.0-4.8); Lymphocytes % (A) 12 %; MCH 29.3 pg (25.0-35.0); MCV 91.6 fL (80.0-100.0); Mean Platelet Volume 7.4; Monocytes # (A) 0.6 k/uL (0-1.0); Monocytes % (A) 4 %; Neutrophils # (A) 11.5 k/uL (1.3-7.7); Neutrophils % (A) 82 %; Platelet Count 185 k/uL (150-450); RBC 4.34 m/uL (4.30-5.90)
[2020-04-07 07:49] VITALS: BP 115/74; RESP 16; TEMP 97.9
--- NOTE | 2020-04-07 08:31 | P.DS ---
Providers Expected date of discharge: 04/07/20 Attending physician: Karthikeyan Ruggiero Consults: 04/06/20 09:51 Consult Physician Routine Consulting Provider: Abeba Granda Consult Reason/Comments: medical management Do you want consulting provider notified?: Yes Primary care physician: Roni Henry - Discharge Diagnosis(es) (1) Osteoarthritis of right hip Current Visit: Yes Status: Acute (2) S/P total hip arthroplasty Current Visit: Yes Status: Acute Hospital Course: This is a 59-year-old male with known history of degenerative arthritis of the right hip. The patient presents for evaluation. After discussion and consideration patient elects to proceed with total hip arthroplasty. The patient is seen preoperatively by Dr. Ruggiero and medically cleared for surgery by their primary care physician. Patient is admitted to [facility] on 04/06/2020 for total hip arthroplasty. The procedures performed without complication or sequelae. The patient is doing well postoperatively. Labs and vital signs are stable on day of discharge. On day of discharge patient's hip incision is healing well. There is minimal erythema. There is no drainage noted at this time. There is minimal soft tissue swelling to the hip and thigh. Patient has full foot and ankle motion without difficulty or pain. Calf is soft and nontender to palpation. Neurovascular status to the right lower extremity is intact. Patient is discharged home in good condition. Opioid start talking form is reviewed and signed at patient bedside. Please see med rec for accurate list of home medications. Plan - Discharge Summary Discharge Rx Participant: Yes New Discharge Prescriptions: New Aspirin 325 mg PO BID #60 tab HYDROcodone/APAP 5-325MG [[place] 5-325] 1 - 2 tab PO Q6HR PRN #48 tab PRN Reason: Pain Sennosides [Senokot] 2 tab PO DAILY PRN #60 tablet PRN Reason: Constipation No Action Levothyroxine Sodium [Synthroid] 25 mcg PO DAILY Multivitamin [Men's Multi-Vitamin] 1 each PO DAILY Metoprolol Succinate (ER) [Toprol Xl] 25 mg PO DAILY Losartan Potassium 50 mg PO DAILY Discharge Medication List Levothyroxine Sodium [Synthroid] 25 mcg PO DAILY 04/22/14 [History] Multivitamin [Men's Multi-Vitamin] 1 each PO DAILY 06/13/18 [History] Losartan Potassium 50 mg PO DAILY 09/28/20 [History] Metoprolol Succinate (ER) [Toprol Xl] 25 mg PO DAILY 04/05/20 [History] Aspirin 325 mg PO BID #60 tab 04/07/20 [Rx] HYDROcodone/APAP 5-325MG [[place] 5-325] 1 - 2 tab PO Q6HR PRN #48 tab 04/07/20 [Rx] Sennosides [Senokot] 2 tab PO DAILY PRN #60 tablet 04/07/20 [Rx] Follow up Appointment(s)/Referral(s): Karthikeyan Ruggiero DO [Doctor of Osteopathic Medicine] - 2 Weeks Activity/Diet/Wound Care/Special Instructions: Weightbearing as tolerated with walker. Leave dressing intact. Dressing may be removed by home care nurse or by patient in 10 days. May shower with dressing on. Please take aspirin 325mg twice daily for 30 days to prevent blood clots. Recommend use of compression stockings daily until follow up to help prevent swelling and blood clots. May remove at night before sleeping. Please follow-up with [facility] in 2 weeks and call with any questions or concerns, . Discharge Disposition: HOME WITH HOME HEALTH SERVICES
[2020-04-07] MEDS: ASPIRIN 325 MG TAB PO SCH (08:48)
[2020-04-07] MEDS ORDERED: MULTIVITAMINS, THERA 1 EACH TAB PO SCH (09:00)
[2020-04-07] MEDS ORDERED: LOSARTAN 50 MG TAB PO SCH (09:00)
[2020-04-07] MEDS ORDERED: MELOXICAM 7.5 MG TAB PO SCH (09:00)
[2020-04-07] MEDS ORDERED: METOPROLOL SUCCINATE (ER) 25 MG TAB.ER.24H PO SCH (09:00)
--- NOTE | 2020-04-07 11:27 | P.CONS ---
History of Present Illness - History of Present Illness This is a pleasant 79 years old male with past medical history of hypertension, osteoarthritis, hypothyroidism. He was admitted for surgery team for right total hip arthroplasty. Today is postoperative day #1. Medical consult was requested for routine medical management. Patient was lying in bed comfortable with no chest pain or dyspnea, no fever, no abdominal pain or nausea vomiting, no change in urine or bowel habits. Risks of vitals are stable. Labs showed mild leukocytosis of 14.0 K, mostly reactive Review of Systems CONSTITUTIONAL: No fever, no malaise, no fatigue. HEENT: No recent visual problems or hearing problems. Denied any sore throat. CARDIOVASCULAR: No orthopnea, PND, no palpitations, no syncope. PULMONARY: No shortness of breath, no cough, no hemoptysis. GASTROINTESTINAL: No diarrhea, no nausea, no vomiting, no abdominal pain. Normoactive bowel sounds. NEUROLOGICAL: No headaches, no weakness, no numbness. HEMATOLOGICAL: Denies any bleeding or petechiae. GENITOURINARY: Denies any burning micturition, frequency, or urgency. MUSCULOSKELETAL/RHEUMATOLOGICAL: Denies any joint pain, swelling, or any muscle pain. ENDOCRINE: Denies any polyuria or polydipsia. Past Medical History Past Medical History: Hypertension, Osteoarthritis (OA), Thyroid Disorder Additional Past Medical History / Comment(s): HYPOTHYROID, PAIN RIGHT HIP. History of Any Multi-Drug Resistant Organisms: None Reported Past Surgical History: Orthopedic Surgery Additional Past Surgical History / Comment(s): RT FOOT SURGERY, LEFT KNEE SURGERY Past Anesthesia/Blood Transfusion Reactions: No Reported Reaction, Motion Sickness Additional Past Anesthesia/Blood Transfusion Reaction / Comm: TOOK A WHILE TO WAKE UP. Past Psychological History: No Psychological Hx Reported Smoking Status: Never smoker Past Alcohol Use History: Occasional Past Drug Use History: Marijuana Additional Drug Use History / Comment(s): OCCASIONAL MARIJUANA - Past Family History Mother Family Medical History: Deep Vein Thrombosis (DVT), Pulmonary Embolus Sister(s) Family Medical History: Cancer Brother(s) Family Medical History: Cancer Additional Family Medical History / Comment(s): 3 BROTHERS HAD CANCER Medications and Allergies Home Medications Medication Instructions Recorded Confirmed Type Levothyroxine Sodium [Synthroid] 25 mcg PO DAILY 04/22/14 04/05/20 History Multivitamin [Men's Multi-Vitamin] 1 each PO DAILY 06/13/18 04/05/20 History Losartan Potassium 50 mg PO DAILY 04/05/20 04/05/20 History Metoprolol Succinate (ER) [Toprol 25 mg PO DAILY 04/05/20 04/05/20 History Xl] Aspirin 325 mg PO BID #60 tab 04/07/20 Rx HYDROcodone/APAP 5-325MG [[place] 1 - 2 tab PO Q6HR PRN #48 tab 04/07/20 Rx 5-325] Sennosides [Senokot] 2 tab PO DAILY PRN #60 tablet 04/07/20 Rx Allergies Allergy/AdvReac Type Severity Reaction Status Date / Time No Known Allergies Allergy Verified 04/06/20 10:49 Physical Exam Vitals: Vital Signs Temp Pulse Pulse Resp BP BP Pulse Ox 04/07/20 07:00 97.9 F 56 L 16 115/74 96 04/07/20 02:30 97.6 F 56 L 17 115/69 94 L 04/06/20 19:25 97.9 F 67 16 120/73 93 L 04/06/20 15:49 97.4 F L 53 L 18 138/82 94 L 04/06/20 15:00 61 16 120/59 99 04/06/20 14:45 45 L 14 125/72 100 04/06/20 14:30 50 L 14 124/60 99 04/06/20 14:15 60 16 111/64 97 04/06/20 14:07 96.8 F L 59 L 12 123/73 97 Intake and Output 04/06/20 04/07/20 04/07/20 22:59 06:59 14:59 Intake Total 50 Balance 50 Intake: Intake, IV Titration 50 Amount ceFAZolin 2 gm In Sodium 50 Chloride 0.9% 50 ml @ 100 mls/hr IVPB Q8H [facility] Rx#: [id number] Other: # Voids 1 GENERAL: The patient is alert and oriented x3, not in any acute distress. Well developed, well nourished. HEENT: Pupils are round and equally reacting to light. EOMI. No scleral icterus. No conjunctival pallor. Normocephalic, atraumatic. No pharyngeal erythema. No thyromegaly. CARDIOVASCULAR: S1 and S2 present. No murmurs, rubs, or gallops. PULMONARY: Chest is clear to auscultation, no wheezing or crackles. ABDOMEN: Soft, nontender, nondistended, normoactive bowel sounds. No palpable organomegaly. -MUSCULOSKELETAL: No joint swelling or deformity. Right hip wound is closed with dressing is in place EXTREMITIES: No cyanosis, clubbing, or pedal edema. NEUROLOGICAL: Gross neurological examination did not reveal any focal deficits. SKIN: No rashes. No petechiae Results CBC & Chem 7: 04/07/20 05:38 Labs: Abnormal Lab Results - Last 24 Hours (Table) 04/07/20 Range/Units 05:38 WBC 14.0 H (3.8-10.6) k/uL Hgb 12.7 L (13.0-17.5) gm/dL Neutrophils # 11.5 H (1.3-7.7) k/uL Assessment and Plan Assessment: -Status post right total hip arthroplasty, continue with management as per orthopedic primary team -Mild leukocytosis, mostly reactive, no signs or symptoms of infection, no need for antibiotics. Please close monitor his WBC -Hypertension -Osteoarthritis -Hypothyroidism DVT prophylaxis: As per orthopedic primary team GI prophylaxis: No need Recommend patient follow up with his PCP within one week after discharge, patient was instructed with the same. Patient told me he already has an appointment with his PCP on Thank you for consulting us, we will follow up with the
== END 2020-04-07 12:11 | disposition home health service (06) ==
LOC: OR 10:28 → 4SSUR 14:03 → OR 04-07 12:11
PROVIDERS: ATTEND Orthopaedic Surgery
DX: M16.11 Unilateral primary osteoarthritis, right hip (principal); I10 Essential (primary) hypertension; E78.2 Mixed hyperlipidemia; E03.9 Hypothyroidism, unspecified; M10.9 Gout, unspecified; D72.829 Elevated white blood cell count, unspecified; Z97.3 Presence of spectacles and contact lenses; Z98.52 Vasectomy status; Z87.891 Personal history of nicotine dependence; Z82.49 Family history of ischemic heart disease and other diseases of the circulatory system; Z80.9 Family history of malignant neoplasm, unspecified; Z79.1 Long term (current) use of non-steroidal anti-inflammatories (NSAID); Z79.890 Hormone replacement therapy; Z79.899 Other long term (current) drug therapy
CPT/HCPCS: 97110; 97161; 97165; 86891; 85025; 73501; 73502; 27130; C1776; J2250; J0171; J1644; J1100; J0690 ×3; J2405; J3010; J1885; J2795; J2704; J0735; 86850; 86900; 86901; 88300

== ENCOUNTER 2020-04-13 20:18 | Emergency (ER) | payer BC ==
[2020-04-13 20:25] VITALS: RESP 18; TEMP 98
[2020-04-13] MEDS ORDERED: ONDANSETRON 4 MG/2 ML VIAL IVP STA ×2 (20:42→23:03)
[2020-04-13] MEDS ORDERED: SODIUM CHLORIDE 0.9% 500 ML 500 ML IV STA (20:42)
[2020-04-13] MEDS ORDERED: MORPHINE SULFATE 2 MG/ML SYRINGE IVP ONE (20:42)
[2020-04-13 21:10] LABS: Basophils % (A) 0 %; Eosinophils % (A) 0 %; HCT 39.5 % (39.0-53.0); HGB 13.2 gm/dL (13.0-17.5); Lymphocytes # (A) 0.8 k/uL (1.0-4.8); Lymphocytes % (A) 7 %; MCH 30.2 pg (25.0-35.0); MCHC 33.4 g/dL (31.0-37.0); MCV 90.4 fL (80.0-100.0); Mean Platelet Volume 6.8; Monocytes # (A) 0.4 k/uL (0-1.0); Monocytes % (A) 3 %; Neutrophils # (A) 10.4 k/uL (1.3-7.7); Neutrophils % (A) 89 %; Platelet Count 286 k/uL (150-450); RBC 4.37 m/uL (4.30-5.90); RDW 12.9 % (11.5-15.5); WBC 11.7 k/uL (3.8-10.6)
[2020-04-13 21:19] LABS: Calcium 9.2 mg/dL (8.4-10.2); Potassium 4.2 mmol/L (3.5-5.1); Total Bilirubin 0.8 mg/dL (0.2-1.3); Total Protein 6.6 g/dL (6.3-8.2)
[2020-04-13 21:24] LABS: INR 0.9 (<1.2); Prothrombin Time 9.9 sec (9.0-12.0)
--- NOTE | 2020-04-13 21:25 | ED ---
General Adult HPI - General Source: patient Mode of arrival: wheelchair Limitations: no limitations <Cassidy Posadas - Last Filed: 04/13/20 22:46> <Priti Edwardsah Miranda - Last Filed: 04/14/20 14:50> - General Chief complaint: Fall Stated complaint: Fall Time Seen by Provider: 04/13/20 20:30 - History of Present Illness Initial comments: Patient is a 59-year-old male presenting to the emergency department after ruben suggs a syncopal episode approximately noon today. Patient's is also here with him now is providing some history. Patient states the last thing he remembers is feeling dizzy and lightheaded while he was in the garage and then waking up in his house. The states she stepped out of the house for approximately 30 minutes and when she returned he was lying in his bed and "not making sense" and also did not know how he got into his bed. states that she noticed blood in the garage as well as a pile of vomit. Patient's did call EMS and they did check his vital signs however patient refused transport to the hospital. He recently had a right LAURY one week ago. He is on 325 mg of aspirin at twice daily since his procedure. Patient states he has had syncopal events in the past secondary from low blood pressures. Patient states now he is complaining of a headache, continues to feel nauseous and dizziness. Patient states he feels some soreness in his right lower extremity but that has been normal since the surgery. He denies any chest pain, shortness of breath, abdominal pain. He denies any pain in his upper extremities. He denies any blurry vision. He has no further complaints. (Cassidy Posadas) - Related Data Home Medications Medication Instructions Recorded Confirmed Levothyroxine Sodium [Synthroid] 25 mcg PO DAILY 04/22/14 04/13/20 Multivitamin [Men's Multi-Vitamin] 1 tab PO DAILY 06/13/18 04/13/20 Losartan Potassium 50 mg PO DAILY 04/05/20 04/13/20 Metoprolol Succinate (ER) [Toprol 25 mg PO DAILY 04/05/20 04/13/20 Xl] Previous Rx's Medication Instructions Recorded Aspirin 325 mg PO BID #60 tab 04/07/20 HYDROcodone/APAP 5-325MG [[place] 1 - 2 tab PO Q6HR PRN #48 tab 04/07/20 5-325] Sennosides [Senokot] 2 tab PO DAILY PRN #60 tablet 04/07/20 Allergies Allergy/AdvReac Type Severity Reaction Status Date / Time No Known Allergies Allergy Verified 04/13/20 22:07 Review of Systems ROS Other: All systems not noted in ROS Statement are negative. <Cassidy Posadas - Last Filed: 04/13/20 22:46> ROS Other: All systems not noted in ROS Statement are negative. <Dina Edwards - Last Filed: 04/14/20 14:50> ROS Statement: Those systems with pertinent positive or pertinent negative responses have been documented in the HPI. Past Medical History Past Medical History: Hyperlipidemia, Hypertension, Osteoarthritis (OA), Thyroid Disorder Additional Past Medical History / Comment(s): LEFT KNEE INJURY, total right hip History of Any Multi-Drug Resistant Organisms: None Reported Past Surgical History: Orthopedic Surgery Additional Past Surgical History / Comment(s): RT FOOT SURGERY; VASECTOMY Past Anesthesia/Blood Transfusion Reactions: Motion Sickness Past Psychological History: No Psychological Hx Reported Smoking Status: Never smoker Past Alcohol Use History: Occasional Past Drug Use History: Marijuana - Past Family History Mother Family Medical History: Deep Vein Thrombosis (DVT), Pulmonary Embolus Sister(s) Family Medical History: Cancer Brother(s) Family Medical History: Cancer Additional Family Medical History / Comment(s): 3 BROTHERS HAD CANCER <Cassidy Posadas - Last Filed: 04/13/20 22:46> General Exam Limitations: no limitations <Cassidy Posadas - Last Filed: 04/13/20 22:46> - General Exam Comments Initial Comments: GENERAL: Patient is well-developed and well-nourished. Patient is nontoxic and in no acute distress, but does look uncomfortable, sitting with eyes closed. HEAD: Patient has a small hematoma on the posterior aspect left side as well as a small laceration. No active bleeding. No signs of basal skull fracture. EYES: Pupils equal round and reactive to light, extraocular movements intact, sclera anicteric, conjunctiva are normal. Eyelids were unremarkable. ENT: TMs normal, nares patent, oropharynx clear without exudates. Moist mucous membranes. NECK: Normal range of motion, supple without lymphadenopathy or JVD. No midline tenderness. LUNGS: Unlabored respirations. Breath sounds clear to auscultation bilaterally and equal. No wheezes rales or rhonchi. HEART: Regular rate and rhythm without murmurs, rubs or gallops. ABDOMEN: Soft, nontender, normoactive bowel sounds. No guarding, no rebound. No masses appreciated. : Deferred MUSCULOSKELETAL: Recent right LAURY, mild pain with palpation the upper leg, which has been normal. He is neurovascularly intact lower extremities bilaterally. No pitting or edema. No clubbing or cyanosis. NEUROLOGICAL: Patient is alert and oriented x 3. Motor and sensory are also intact. Cranial nerves II through XII grossly intact. Symmetrical smile. Normal speech. PSYCH: Normal mood, normal affect. SKIN: Warm, Dry, normal turgor, no rashes. Patient has a 1 cm laceration to the posterior aspect the left side of the head. No active bleeding. (Cassidy Posadas) Course <Dina Edwards - Last Filed: 04/14/20 14:50> Vital Signs 04/13/20 04/13/20 04/13/20 20:19 22:14 22:47 Temperature 98 F Pulse Rate 80 75 77 Respiratory 18 18 18 Rate Blood Pressure 133/85 133/79 115/88 O2 Sat by Pulse 96 97 95 Oximetry 04/13/20 23:31 Temperature Pulse Rate 72 Respiratory 18 Rate Blood Pressure 114/80 O2 Sat by Pulse 95 Oximetry - Reevaluation(s) Reevaluation #1: Paged Dr. Colorado regarding CT findings. 04/13/20 21:50 (Dina Edwards) Reevaluation #2: Spoke with Dr. Colorado regarding CT findings. Angios already completed. Await ing read. Will transfer to [facility] 04/13/20 22:17 (Dina Edwards) Reevaluation #3: Spoke with Dr. Solares who agreed to accept transfer of the patient 04/13/20 22:41 (Dina Edwards) EKG Findings - EKG Comments: EKG Findings:: Normal sinus rhythm, T-wave abnormalities, no signs of acute ischemia. Ventricular rate 69, DE interval 136, QT 372. Similar to previous EKG on 01/11/2020. <Cassidy Posadas - Last Filed: 04/13/20 22:46> Procedures - Laceration Laceration #1 Consent Obtained: verbal consent Indication: laceration Site: scalp (Left posterior aspect) Size (cm): 1 Description: linear Depth: simple, single layer Patient Tolerated Procedure: well <Cassidy Posadas - Last Filed: 04/13/20 22:46> - Laceration Laceration #1 Additional Comments: 2 david were used to close the wound. No active bleeding. (Cassidy Posadas) Medical Decision Making - Lab Data Result diagrams: 04/13/20 20:53 04/13/20 20:53 <Cassidy Posadas - Last Filed: 04/13/20 22:46> - Lab Data Result diagrams: 04/13/20 20:53 04/13/20 20:53 <Dina Edwards - Last Filed: 04/14/20 14:50> - Medical Decision Making Patient is a 59-year-old male presenting after having a syncopal event at noon today, patient arrived about 8:30pm. Patient was evaluated by EMS after his fall but he refused transport at that time. Patient's vital signs are stable upon arrival. His lab work shows a slight leukocytosis of 11.7, coags are normal, liver enzymes are slightly elevated, troponin is normal. EKG shows no acute process, chest x-ray shows no acute process. CT of the brain and C-spine showed no acute fracture dislocation of the cervical spine. There is a new large left parietal acute scalp hematoma as well as an acute subarachnoid hemorrhage involving the right temporal and frontal lobes. No midline shift. No new hydrocephalus. Patient was immediately taking for a CT angioma of the neck and brain which is negative. Patient will be transferred to the [facility] for neuro interventalgist. He is in agreement with this plan of care. Case discussed in detail with Dr. Edwards. (Cassidy Posadas) I was available for consultation in the emergency department. The history and physical exam were done by the midlevel provider. I was consulted for this patients care. I reviewed the case with the midlevel provider and based on their presentation of the patient, I agree with the assessment, medical decision making and plan of care as documented. Patient evaluated by myself. CT head demonstrated SAH and therefore pt sent back for CTA to determine if bleed is due to aneurysm rupture. Discussed case with Dr. Colorado who agreed the patient should be transported to [facility]. CTA negative. Discussed results with family. Arranged transfer to [facility]. Attempted to call Dr. Colorado back regarding CTA findings however I am awaiting call back. Patient transported lights and sirens to [facility]. Chart was dictated using [employer] dictation software. Attempts were made to correct any dictation errors however some typographical errors may persist. (Dina Edwards) - Lab Data Lab Results 04/13/20 04/13/20 04/13/20 Range/Units 20:53 20:53 20:53 WBC 11.7 H (3.8-10.6) k/uL RBC 4.37 (4.30-5.90) m/uL Hgb 13.2 (13.0-17.5) gm/dL Hct 39.5 (39.0-53.0) % MCV 90.4 (80.0-100.0) fL MCH 30.2 (25.0-35.0) pg MCHC 33.4 (31.0-37.0) g/dL RDW 12.9 (11.5-15.5) % Plt Count 286 (150-450) k/uL Neutrophils % 89 % Lymphocytes % 7 % Monocytes % 3 % Eosinophils % 0 % Basophils % 0 % Neutrophils # 10.4 H (1.3-7.7) k/uL Lymphocytes # 0.8 L (1.0-4.8) k/uL Monocytes # 0.4 (0-1.0) k/uL Eosinophils # 0.0 (0-0.7) k/uL Basophils # 0.0 (0-0.2) k/uL PT 9.9 (9.0-12.0) sec INR 0.9 (<1.2) APTT 24.0 (22.0-30.0) sec Sodium 137 (137-145) mmol/L Potassium 4.2 (3.5-5.1) mmol/L Chloride 104 (98-107) mmol/L Carbon Dioxide 27 (22-30) mmol/L Anion Gap 6 mmol/L BUN 30 H (9-20) mg/dL Creatinine 1.08 (0.66-1.25) mg/dL Est GFR (CKD-EPI)AfAm 86 (>60 ml/min/1.73 sqM) Est GFR (CKD-EPI)NonAf 74 (>60 ml/min/1.73 sqM) Glucose 141 H (74-99) mg/dL Calcium 9.2 (8.4-10.2) mg/dL Magnesium 2.0 (1.6-2.3) mg/dL Total Bilirubin 0.8 (0.2-1.3) mg/dL AST 67 H (17-59) U/L ALT 103 H (4-49) U/L Alkaline Phosphatase 141 H (38-126) U/L Troponin I (0.000-0.034) ng/mL Total Protein 6.6 (6.3-8.2) g/dL Albumin 4.0 (3.5-5.0) g/dL 04/13/20 Range/Units 20:53 WBC (3.8-10.6) k/uL RBC (4.30-5.90) m/uL Hgb (13.0-17.5) gm/dL Hct (39.0-53.0) % MCV (80.0-100.0) fL MCH (25.0-35.0) pg MCHC (31.0-37.0) g/dL RDW (11.5-15.5) % Plt Count (150-450) k/uL Neutrophils % % Lymphocytes % % Monocytes % % Eosinophils % % Basophils % % Neutrophils # (1.3-7.7) k/uL Lymphocytes # (1.0-4.8) k/uL Monocytes # (0-1.0) k/uL Eosinophils # (0-0.7) k/uL Basophils # (0-0.2) k/uL PT (9.0-12.0) sec INR (<1.2) APTT (22.0-30.0) sec Sodium (137-145) mmol/L Potassium (3.5-5.1) mmol/L Chloride (98-107) mmol/L Carbon Dioxide (22-30) mmol/L Anion Gap mmol/L BUN (9-20) mg/dL Creatinine (0.66-1.25) mg/dL Est GFR (CKD-EPI)AfAm (>60 ml/min/1.73 sqM) Est GFR (CKD-EPI)NonAf (>60 ml/min/1.73 sqM) Glucose (74-99) mg/dL Calcium (8.4-10.2) mg/dL Magnesium (1.6-2.3) mg/dL Total Bilirubin (0.2-1.3) mg/dL AST (17-59) U/L ALT (4-49) U/L Alkaline Phosphatase (38-126) U/L Troponin I <0.012 (0.000-0.034) ng/mL Total Protein (6.3-8.2) g/dL Albumin (3.5-5.0) g/dL Critical Care Time Critical Care Time: Yes Total Critical Care Time: 35 (Subarachnoid hemorrhage) <Cassidy Posadas - Last Filed: 04/13/20 22:46> Disposition - Out of Hospital Transfer - Req. Specs Out of Hospital Transfer - Requested Specifics: Other Emergency Center ([facility]) <Cassidy Posadas - Last Filed: 04/13/20 22:46> <Dina Edwards - Last Filed: 04/14/20 14:50> Clinical Impression: Subarachnoid hemorrhage, Fall, Scalp hematoma, Syncope and collapse, Status post total hip replacement, right Disposition: OTHER INSTITUTION NOT DEFINED Condition: Stable Referrals: Roni Henry DO [Primary Care Provider] - 1-2 days
--- NOTE | 2020-04-13 21:30 | XR ---
EXAMINATION TYPE: XR chest 2V DATE OF EXAM: 04/13/2020 COMPARISON: Chest x-ray January 11, 2020 HISTORY: Syncope and weakness. Vomiting. TECHNIQUE: Frontal and lateral views of the chest are obtained. FINDINGS: Elevated right hemidiaphragm current study. There is no focal air space opacity, pleural ef fusion, or pneumothorax seen. The cardiac silhouette size is upper limits of normal. The osseous s tructures are intact. IMPRESSION: No acute cardiopulmonary process.
--- NOTE | 2020-04-13 21:39 | CT ---
EXAMINATION TYPE: CT brain cspine wo con DATE OF EXAM: 04/13/2020 COMPARISON: CT brain January 11, 2020 HISTORY: Fall with headache and nausea and neck pain. CT DLP: 1489.3 mGycm. Automated Exposure Control for Dose Reduction was Utilized. TECHNIQUE: CT scan of the head and cervical spine are performed without contrast. FINDINGS: There is new acute right-sided subarachnoid hemorrhage posterior frontal region axial erick ge 29 with additional hyperdense sulci superior to this axial image 37 for reference. There is additi onal inferior involvement right frontal lobe axial image 18 and areas of acute extra-axial hemorrhage right temporal region greatest axial image 17. No midline shift. Large left parietal acute scalp he matoma. No hydrocephalus. Slight asymmetry to ventricle stable. The globes are intact and the visual ized sinuses are clear. The calvarium is intact Cervical spine is visualized in its entirety from C1 through upper thoracic levels and demonstrates l evoconvex scoliotic curvature positioning coronal images and loss of normal cervical curvature sagitt al images without evidence of acute fracture or dislocation. Prevertebral soft tissue appears within normal limits. The C1-C2 articulation is within normal limits on the coronal images. Vertebral bod y heights and disc space heights are maintained. Spinal canal grossly preserved. Review of axial imag es shows multilevel uncovertebral facet degenerative changes contributing to multilevel bilateral angel ral foraminal narrowing. Thyroid gland is felt within normal limits. Lung apices show no pneumothorax . IMPRESSION: 1. There is no acute fracture or dislocation evident in the cervical spine. 2. New large left parietal acute scalp hematoma. Multifocal areas of acute subarachnoid hemorrhage in volving right temporal and frontal lobes. No midline shift. No new hydrocephalus. Results of acute subarachnoid hemorrhage called to ordering emergency room physician via telephone at time of dictation.
--- NOTE | 2020-04-13 22:29 | CT ---
EXAMINATION TYPE: CT angio head neck DATE OF EXAM: 04/13/2020 COMPARISON: None HISTORY: Fall with headache and nausea. CT DLP: 530.8 mGycm Automated exposure control for dose reduction was used. CONTRAST: Performed with IV Contrast, patient injected with 65ml mL of Isovue 370. Images were obtained from the aortic arch to the vertex of the brain with IV contrast and 3-D post pr ocessed images. FINDINGS: There is normal branching pattern of the great vessels on the aortic arch. There is bilateral arteria l flow in the subclavian arteries. There is arterial flow in the common internal and external carotid arteries bilaterally. There is wide patency of the carotid artery bifurcations. I see no evidence of hemodynamic stenosis. There is no evidence of carotid or vertebral artery aneurysm or dissection. Th ere is symmetric bilateral arterial flow in the vertebral arteries. There is arterial flow in the vertebrobasilar artery system. There is arterial flow in the anterior m iddle and posterior cerebral arteries. There is no mass effect. I see no evidence of intracranial ane urysm or neovascularity. There is mucosal thickening in the ethmoid and sphenoid sinuses. There is le ft parietal scalp hematoma. There is normal contrast opacification of the venous sinuses. There is no evidence of intracranial he modynamic stenosis. IMPRESSION: Negative CT angiogram of the brain. Negative CT angiogram of the neck.
[2020-04-13] MEDS ORDERED: fentaNYL (PF) 50 MCG/ML 2 ML AMP IVP STA (23:03)
[2020-04-13 23:33] VITALS: BP 114/80; PULSE 72
== END 2020-04-13 23:15 | disposition other institution (70) ==
LOC: EC 20:18
DX: S06.6X9A Traumatic subarachnoid hemorrhage with loss of consciousness of unspecified duration, initial encounter (principal); S01.01XA Laceration without foreign body of scalp, initial encounter; D72.829 Elevated white blood cell count, unspecified; R74.8 Abnormal levels of other serum enzymes; I10 Essential (primary) hypertension; E07.9 Disorder of thyroid, unspecified; M19.90 Unspecified osteoarthritis, unspecified site; Z79.890 Hormone replacement therapy; Z79.899 Other long term (current) drug therapy; Z96.641 Presence of right artificial hip joint; W18.39XA Other fall on same level, initial encounter; Y92.009 Unspecified place in unspecified non-institutional (private) residence as the place of occurrence of the external cause
CPT/HCPCS: 99291 ×2; 96374 ×2; 96375 ×3; 96376 ×2; 96361 ×2; 12001 ×2; 36415; 93005; 80053; 83735; 84484; 85025; 85610; 85730; 71046; 72125; 70496; 70450; 70498; J2405; J3010; J2270; Q9967